=== PATIENT | male | born 1960 | race Caucasian/White ===

== ENCOUNTER 2016-12-31 10:48 | Outpatient (RCR) | payer OTHER | END 2017-03-12 | disposition still patient (30) | LOC: WSOH | DX: M25.561 Pain in right knee (principal); M25.552 Pain in left hip; W01.0XXA Fall on same level from slipping, tripping and stumbling without subsequent striking against object, initial encounter; Y99.0 Civilian activity done for income or pay; Z79.01 Long term (current) use of anticoagulants; Z95.2 Presence of prosthetic heart valve ==